=== PATIENT | female | born 1980 | race Caucasian/White ===

== ENCOUNTER 2022-02-27 13:21 | Day surgery (SDC) | payer OTHER ==
[2022-02-27] MEDS ORDERED: Depo-Medrol 40 MG/ML IM ONE (13:22)
[2022-02-27] MEDS ORDERED: Marcaine Mpf 0.5% Vial 30 Ml IJ ONE (13:22)
[2022-02-27] MEDS ORDERED: DIPRIVAN 200 MG/20 ML IV ONE (15:37)
--- NOTE | 2022-02-27 16:54 | XRAY ---
Indication: Right SI joint injection. Intraoperative fluoroscopy provided for 10 seconds. 2 digital spot image submitted for interpretation images demonstrates posterior needle tip projecting over the right SI joint. Correlate with intraoperative findings/report.
--- NOTE | 2022-02-27 16:56 | XRAY ---
10 seconds of fluoroscopy was used in surgery for a right SI joint injection.
[2022-02-27] MEDS ORDERED: Lactated Ringers 1,000 ML IV ONE (17:40)
== END 2022-02-27 16:05 | disposition home or self-care (01) ==
LOC: SDC-PAIN 13:21
PROVIDERS: ATTEND Psychiatry & Neurology Pain Medicine
DX: M46.1 Sacroiliitis, not elsewhere classified (principal); Z79.899 Other long term (current) drug therapy
CPT/HCPCS: 01992; 27096; 72170; 77002; 81025; G0260; J1030; J2704

== ENCOUNTER 2022-11-27 11:41 | Day surgery (SDC) | payer OTHER ==
[2022-11-27] MEDS ORDERED: Sodium Chloride 0.9(Preservative Free) 10 ML IJ ONE (11:42)
[2022-11-27] MEDS ORDERED: LIDOCAINE HCL 1% 50 MG/5 ML VL PF IJ ONE (11:42)
[2022-11-27] MEDS ORDERED: BUPIVACAINE 0.5% VIAL IJ ONE (11:42)
[2022-11-27] MEDS ORDERED: Depo-Medrol 40 MG/ML IM ONE ×2 (11:42)
[2022-11-27 12:28] LABS: HCG URINE TEST NEGATIVE (NEGATIVE)
[2022-11-27] MEDS ORDERED: DIPRIVAN 200 MG/20 ML IV ONE (13:31)
--- NOTE | 2022-11-27 13:55 | XRAY ---
Indication: Right SI joint injection. Intraoperative fluoroscopy provided for 10 seconds. 3 digital spot image submitted for interpretation demonstrates posterior needle tip projecting over the right SI joint. Correlate with intraoperative findings/report.
[2022-11-27] MEDS ORDERED: Lactated Ringers 1,000 ML IV ONE (14:35)
--- NOTE | 2022-11-27 15:14 | XRAY ---
10 seconds of fluoroscopy was used in surgery for a right sacroiliac joint injection.
== END 2022-11-27 13:59 | disposition home or self-care (01) ==
LOC: SDC-PAIN 11:41
PROVIDERS: ATTEND Psychiatry & Neurology Pain Medicine
DX: M46.1 Sacroiliitis, not elsewhere classified (principal); Z79.899 Other long term (current) drug therapy
CPT/HCPCS: 27096; 72170; 77002; 81025; G0260; J1030; J2001; J2704

== ENCOUNTER 2024-08-11 09:50 | Day surgery (SDC) | payer OTHER ==
[2024-08-11] MEDS ORDERED: Depo-Medrol 40 MG/ML IM ONE (09:51)
[2024-08-11] MEDS ORDERED: BUPIVACAINE 0.5% VIAL IJ ONE (09:51)
[2024-08-11 10:45] LABS: HCG URINE TEST NEGATIVE (NEGATIVE)
[2024-08-11] MEDS ORDERED: propofoL IV ONE (11:52)
--- NOTE | 2024-08-11 13:39 | XRAY ---
Indication: Bilateral SI joint injection. Intraoperative fluoroscopy provided for 27 seconds. Single digital spot images submitted for interpretation demonstrates posterior needle tip projecting over expected left SI joint. Small amount of contrast injected for needle tip placement. No right SI joint images obtained. Correlate with intraoperative findings/report.
--- NOTE | 2024-08-11 14:43 | XRAY ---
27 seconds of fluoroscopy was used in surgery for a bilateral sacroiliac joint injection.
== END 2024-08-11 12:40 | disposition home or self-care (01) ==
LOC: SDC-PAIN 09:50
PROVIDERS: ATTEND Psychiatry & Neurology Pain Medicine
DX: M46.1 Sacroiliitis, not elsewhere classified (principal); R73.03 Prediabetes
CPT/HCPCS: 27096; 72202; 77002; 81025; 82947; J2704; Q9966